=== PATIENT | male | born 1985 | race African-American/Black ===

== ENCOUNTER 2016-09-20 05:59 | Emergency (ER) | payer OTHER ==
[2016-09-20 06:11] VITALS: BP 125/80; PULSE 51; RESP 18; TEMP 97.8
[2016-09-20] MEDS ORDERED: AMOXICILLIN 250 MG/5 ML 80 ML BOTTLE PO ONE (06:19)
[2016-09-20] MEDS ORDERED: AMOXICILLIN 500 MG CAP PO STA ×2 (06:19→06:26)
[2016-09-20] MEDS ORDERED: IBUPROFEN 600 MG TAB PO STA (06:22)
--- NOTE | 2016-09-20 06:22 | ED ---
General Adult HPI - General Chief complaint: Dental/Oral Stated complaint: dental pain Time Seen by Provider: 09/20/16 06:05 Source: patient, RN notes reviewed Mode of arrival: ambulatory Limitations: no limitations - History of Present Illness Initial comments: This is a 30-year-old male who presents to the emergency department complaining of a toothache for the last couple of days. Patient states he has not noticed any swelling or drainage but the tooth has a bad cavity. Patient states he is ALLERGIC to Vicodin and all he would like for pain and some Motrin. Patient states he has no ALLERGIES to any antibiotics. Patient denies any recent fever or chills. Patient denies any other problems at this time. - Related Data Previous Rx's Medication Instructions Recorded ALPRAZolam [Xanax] 0.25 mg PO BID PRN #15 tab 06/21/15 Amoxicillin 500 mg PO Q8H #30 capsule 09/20/16 Allergies Allergy/AdvReac Type Severity Reaction Status Date / Time acetaminophen [From Vicodin] Allergy Nausea & Verified 06/21/15 18:38 Vomiting hydrocodone bitartrate Allergy Nausea & Verified 06/21/15 18:38 [From Vicodin] Vomiting Review of Systems ROS Statement: Those systems with pertinent positive or pertinent negative responses have been documented in the HPI. ROS Other: All systems not noted in ROS Statement are negative. Past Medical History Past Medical History: No Reported History History of Any Multi-Drug Resistant Organisms: None Reported Past Surgical History: Orthopedic Surgery Past Psychological History: No Psychological Hx Reported Smoking Status: Current every day smoker Past Alcohol Use History: None Reported Past Drug Use History: Marijuana General Exam - General Exam Comments Initial Comments: GENERAL Patient is well-developed and well-nourished. Patient is in mild distress. EYES Patient's pupils are equal and round. Extraocular motion is intact Mouth Patient has a tooth with severe caries in the left upper third tooth from the front. This tooth is also very tender no abscesses noted. SKIN Unremarkable NEURO The patient is alert and oriented 3 PYSCH Patient has normal interpersonal interactions. Limitations: no limitations Course Vital Signs 09/20/16 06:03 Temperature 97.8 F Pulse Rate 51 L Respiratory 18 Rate Blood Pressure 125/80 O2 Sat by Pulse 100 Oximetry Disposition Clinical Impression: Dental caries, Toothache Disposition: HOME SELF-CARE Instructions: Dental Caries (ED), Toothache (ED) Prescriptions: Amoxicillin 500 mg PO Q8H #30 capsule Referrals: None,Stated [Primary Care Provider] - 1-2 days Time of Disposition: 06:22
[2016-09-20] MEDS ORDERED: AMOXICILLIN 500MG STARTER PACK 3 CAP BTL PO STA (06:26)
== END 2016-09-20 06:39 | disposition home or self-care (01) ==
LOC: EC 05:59
DX: K02.9 Dental caries, unspecified (principal); F17.200 Nicotine dependence, unspecified, uncomplicated; Z88.5 Allergy status to narcotic agent; Z88.6 Allergy status to analgesic agent
CPT/HCPCS: 99282